=== PATIENT | male | born 1960 | race Caucasian/White ===

== ENCOUNTER 2018-11-17 10:57 | Inpatient (IN) | payer BC ==
[~2018-11-17] VITALS: Ht 185.4 cm; Wt 129.3 kg
--- NOTE | ~2018-11-17 | EKG ---
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 : 1960 Requested By: SHAMAR ALEGRIA Order Number: [id number] Reading MD: Ayan Langford MD Measurements Intervals [place] Rate: 58 P: 15 [place]: 183 QRS: -40 QRSD: 99 T: -24 QT: 412 QTc: 405 Interpretive Statements Sinus rhythm Left anterior fascicular block Low voltage, precordial leads Abnormal R-wave progression, late transition Nonspecific T abnormalities, inferior leads Compared to ECG 05/13/2018 15:44:45 Left anterior fascicular block now present Low QRS voltage now present Left-axis deviation no longer present T-wave abnormality still present Electronically Signed On 11-21-2018 9:40:43 PST by Ayan Langford MD CM:EKGRPT:ELECTROCARDIOGRAM REPORT [id number] SHAMAR MADRIGAL DRAFT REPORT SHAMAR ALEGRIA MD
--- NOTE | ~2018-11-17 | EKG ---
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 : 1960 Requested By: SHAMAR ALEGRIA Order Number: [id number] Reading MD: Ayan Langford MD Measurements Intervals [place] Rate: 65 P: 42 [place]: 207 QRS: -48 QRSD: 102 T: -21 QT: 389 QTc: 405 Interpretive Statements Sinus rhythm Borderline prolonged [place] interval Left anterior fascicular block Abnormal R-wave progression, late transition Borderline T abnormalities, inferior leads Compared to ECG 05/13/2018 15:44:45 Left anterior fascicular block now present Left-axis deviation no longer present T-wave abnormality still present Electronically Signed On 11-21-2018 9:41:05 PST by Ayan Langford MD CM:EKGRPT:ELECTROCARDIOGRAM REPORT [id number] SHAMAR MADRIGAL DRAFT REPORT SHAMAR ALEGRIA MD
--- NOTE | ~2018-11-17 | EKG ---
[place], [place] ELECTROCARDIOGRAM REPORT NAME: JO-ANN TUCKER UNIT #: [id number] ROOM: 404 DOCTOR: ROHAN DRAFT REPORT BIRTHDATE: [address] 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
--- NOTE | ~2018-11-17 | EKG ---
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: : 1960 Requested By: SHAMAR ALEGRIA Order Number: [id number] Reading MD: Measurements Intervals [place] Rate: 58 P: 166 [place]: 183 QRS: 217 QRSD: 99 T: 202 QT: 411 QTc: 404 Interpretive Statements Right and left arm electrode reversal, interpretation assumes no reversal Sinus or ectopic atrial rhythm Probable lateral infarct, age indeterminate Abnormal T, consider ischemia, inferior leads Baseline wander in lead(s) I,II,aVR Compared to ECG 05/13/2018 15:44:45 Ectopic atrial rhythm now present Myocardial infarct finding now present Possible ischemia now present Sinus rhythm no longer present Left-axis deviation no longer present T-wave abnormality still present CM:EKGRPT:ELECTROCARDIOGRAM REPORT [id number] SHAMAR MADRIGAL DRAFT REPORT SHAMAR ALEGRIA MD
[~2018-11-17 10:57] MED LIST: ASPIRIN81 M1 PO; ATORVASTATIN CA40 M1 PO; LOPRESSOR25 MG PO; LOSARTAN POTASS50 M1 PO; ZANTAC150 MG PO; ZOFRAN4 MG PO
[2018-11-17 11:00] VITALS: BP 171/96
[2018-11-17 11:18] LABS: BASO # 0.1 10*3/uL (0.0-0.1); BASO % 0.6 % (0.0-1.0); EOS # 0.2 10*3/uL (0.0-0.4); EOS % 2.4 % (1.0-4.0); HEMATOCRIT 42.8 % (42.0-52.0); HEMOGLOBIN 14.5 g/dl (14.0-18.0); LYMPH # 1.6 10*3/uL (1.3-4.4); LYMPH % 20.2 % (27.0-41.0); MEAN CELL VOLUME 89.4 fl (80.0-94.0); MEAN CORPUSCULAR HGB 30.3 pg (27.0-31.0); MEAN CORPUSCULAR HGB CONC 33.9 g/dl (33.0-37.0); MEAN PLATELET VOLUME 9.8 fl (9.6-12.3); MONO # 0.5 10*3/uL (0.1-1.0); MONO % 6.5 % (3.0-9.0); NEUT # 5.5 10*3/uL (2.3-7.9); NEUT % 69.4 % (47.0-73.0); PLATELET COUNT AUTOMATED 264 10*3/uL (130-400); RED BLOOD COUNT 4.79 10*6/uL (4.50-5.90); RED CELL DISTRI WIDTH 13.7 % (0-14.5); WHITE BLOOD COUNT 7.9 10*3/uL (4.8-10.8)
[2018-11-17 11:26] LABS: ACT PARTIAL THROMBO TIME 21.8 SECONDS (20.8-31.5); INTERNATIONAL NORM RATIO 0.9 (2.0-3.5)
[2018-11-17 11:39] LABS: ALBUMIN 4.2 gm/dl (3.1-4.5); ALKALINE PHOSPHATASE 69 U/L (45-117); BUN 14 mg/dl (7-24); CHLORIDE 107 mmol/L (98-107); CREATININE 1.09 mg/dL (0.70-1.30); POTASSIUM 4.5 mmol/L (3.5-5.1); SGOT/AST 18 IU/L (3-35); SGPT/ALT 46 U/L (12-78); SODIUM 142 mmol/L (136-145); TOTAL PROTEIN 7.5 gm/dL (6.4-8.2)
[2018-11-17 11:40] LABS: TROPONIN I < 0.015 ng/ml (<0.045)
[2018-11-17 12:45] VITALS: BP 148/62
[2018-11-17 13:15] VITALS: BP 155/85
[2018-11-17 13:26] VITALS: BP 155/85
[2018-11-17 15:56] VITALS: BP 127/78
--- NOTE | 2018-11-17 16:15 | NUR ---
DR RONQUILLO NOTIFIED OF CONSULT.
[2018-11-17] MEDS ORDERED: BRILINTA90 M1 PO (18:40)
--- NOTE | 2018-11-17 19:00 | NUR ---
DR BENAVIDES NOTIFIED THAT PT WILL TAKE PLAVIX TONIGHT AND THEN HAVE FAMILY BRING [place] IN AM TO HAVE IT SWITCHED BACK.
[2018-11-17 20:00] VITALS: BP 148/85
--- NOTE | 2018-11-17 20:51 | NUR ---
MEDICATED WITH PO TYLENOL ORDERED PER PT REQUEST FOR C/O HEADACHE.
[2018-11-18] VITALS: BP 153/86
--- NOTE | 2018-11-18 | NUR ---
SLEEPING, SNORING LOUDLY. AWAKENS EASILY. RESPIRATIONS EASY. LUNGS DIMINISHED, CLEAR. PULSE OX 98% RA. DENIES CHEST PAIN. AWARE OF NPO STATUS FOR POSSIBLE TESTING IN AM. CALL LIGHT WITHIN REACH. NO VOICED COMPLAINTS
--- NOTE | 2018-11-18 00:21 | NUR ---
24 HR chart check completed.
--- NOTE | 2018-11-18 06:00 | NUR ---
SLEPT THROUGHOUT NIGHT WITH NO DISTRESS NOTED. RESPIRATIONS EASY. NO C/O CHEST PAIN. CALL LIGHT WITHIN REACH. NO VOICED COMPLAINTS THIS SHIFT
[2018-11-18 06:01] LABS: BASO # 0.1 10*3/uL (0.0-0.1); BASO % 0.6 % (0.0-1.0); EOS # 0.2 10*3/uL (0.0-0.4); EOS % 2.4 % (1.0-4.0); HEMATOCRIT 41.1 % (42.0-52.0); HEMOGLOBIN 14.1 g/dl (14.0-18.0); LYMPH # 2.1 10*3/uL (1.3-4.4); LYMPH % 24.9 % (27.0-41.0); MEAN CELL VOLUME 89.7 fl (80.0-94.0); MEAN CORPUSCULAR HGB 30.8 pg (27.0-31.0); MEAN CORPUSCULAR HGB CONC 34.3 g/dl (33.0-37.0); MEAN PLATELET VOLUME 10.1 fl (9.6-12.3); MONO # 0.6 10*3/uL (0.1-1.0); MONO % 7.5 % (3.0-9.0); NEUT # 5.4 10*3/uL (2.3-7.9); NEUT % 63.9 % (47.0-73.0); PLATELET COUNT AUTOMATED 232 10*3/uL (130-400); RED BLOOD COUNT 4.58 10*6/uL (4.50-5.90); RED CELL DISTRI WIDTH 13.9 % (0-14.5); WHITE BLOOD COUNT 8.5 10*3/uL (4.8-10.8)
[2018-11-18 06:08] LABS: ALBUMIN 3.6 gm/dl (3.1-4.5); BUN 13 mg/dl (7-24); CHLORIDE 107 mmol/L (98-107); CHOLESTEROL 132 mg/dL (<200); CREATININE 1.06 mg/dL (0.70-1.30); HDL CHOLESTEROL 35 mg/dl (40-60); LDL CHOLESTEROL 68 mg/dL (9-159); PHOSPHOROUS 3.6 mg/dL (2.5-4.9); POTASSIUM 3.9 mmol/L (3.5-5.1); SGOT/AST 15 IU/L (3-35); SGPT/ALT 41 U/L (12-78); SODIUM 140 mmol/L (136-145); TOTAL PROTEIN 6.8 gm/dL (6.4-8.2); TRIGLYCERIDES 145 mg/dl (<150); VLDL CHOLESTEROL 29 mg/dL (6-40)
[2018-11-18 06:13] LABS: ALKALINE PHOSPHATASE 62 U/L (45-117); FREE T4 0.84 ng/dl (0.76-1.46)
[2018-11-18 07:40] VITALS: BP 152/88
--- NOTE | 2018-11-18 08:01 | NUR ---
[place] IS AWAKE, SITTING UP IN BED, PLEASANT, COOPERATIVE. DENIES ANY PAIN AT THIS TIME. WILL CONTINUE TO MONITOR. [facility].
[2018-11-18 08:38] LABS: VITAMIN D, 25-HYDROXY 38.1 ng/mL (30-100)
--- NOTE | 2018-11-18 09:00 | NUR ---
Pmo Manager in to talk to patient. Patient states lives at home with . There are few steps in the home. Physician: ahmet [facility]: [facility] Patient's level of ADLs: INDEPENDENT Patient has working utilities: all working DME: none Follow-up physician's appointment after d/c: will be made by hospitalist nurse director upon discharge Does patient want to access PORTAL?: no Discharge plan discussed with patient, patient lives at home with , is independent in adls and ambulation, patient states he will be going home when able and denies any home needs. OLGA SPENCER
--- NOTE | 2018-11-18 10:00 | NUR ---
DR BRAUN CALLED AND NOTIFIED OF PT REQUEST TO FOLLOW UP IN [place] AND NOT HAVE STRESS TEST HERE. DR STATES HE WILL TALK WITH DR HARRIS.
--- NOTE | 2018-11-18 10:22 | NUR ---
DR CASTELLANOS HERE ON FLOOR FOR CARDIOLOGY. UPDATED HIM ON PT REQUEST TO [place] UP WITH CARDIO IN [place] AND NOT HAVING STRESS TEST HERE.
--- NOTE | 2018-11-18 11:10 | NUR ---
Discharge instructions reviewed with patient/family. Patient receptive and verbalizes understanding. Follow-up care arranged. Written instructions given to patient/family. MADAY LEUNG
--- NOTE | 2018-11-18 11:10 | NUR ---
IV SITE DC'D. CATH INTACT. SITE ASYMPTOMATIC. PT TOLERATED WELL. DISCHARGED TO HOME WITH SPOUSE. AMBULATORY WTIH NO VOICED C/O PAIN, SOB, OR DISCOMFORT.
== END 2018-11-18 11:10 | disposition home or self-care (01) | DRG 392 ==
LOC: ED 10:57 → EDHOLD 11:43 → 4E 11:43
PROVIDERS: Emergency Medicine; Internal Medicine Nephrology; ADMIT Internal Medicine
DX: K21.9 Gastro-esophageal reflux disease without esophagitis (principal); R00.1 Bradycardia, unspecified; I10 Essential (primary) hypertension; R73.9 Hyperglycemia, unspecified; R07.89 Other chest pain; D72.810 Lymphocytopenia; E66.9 Obesity, unspecified; K76.0 Fatty (change of) liver, not elsewhere classified; K59.00 Constipation, unspecified; G47.30 Sleep apnea, unspecified; E78.5 Hyperlipidemia, unspecified; I25.10 Atherosclerotic heart disease of native coronary artery without angina pectoris; I25.2 Old myocardial infarction; Z95.5 Presence of coronary angioplasty implant and graft; Z83.3 Family history of diabetes mellitus; Z80.9 Family history of malignant neoplasm, unspecified; Z79.82 Long term (current) use of aspirin; Z79.899 Other long term (current) drug therapy

== ENCOUNTER → 2020-08-30 | Outpatient (CLI) | payer BC ==
[~2020-08-30] MED LIST changes: +BRILINTA90 M1 PO
== END | disposition home or self-care (01) ==
LOC: COVID19 09:48
PROVIDERS: ATTEND Internal Medicine
DX: U07.1 COVID-19 (principal)

== ENCOUNTER 2022-04-11 08:32 | Observation (INO) | payer BC ==
[~2022-04-11] VITALS: Ht 185.4 cm; Wt 144.7 kg
[2022-04-11 08:46] VITALS: BP 129/77
[2022-04-11 09:17] LABS: BASO % 0.5 % (0.0-1.0); EOS # 0.2 10*3/uL (0.0-0.4); EOS % 3.2 % (1.0-4.0); HEMATOCRIT 38.4 % (42.0-52.0); LYMPH % 13.6 % (27.0-41.0); MEAN CELL VOLUME 87.3 fl (80.0-94.0); MEAN CORPUSCULAR HGB 30.2 pg (27.0-31.0); MEAN CORPUSCULAR HGB CONC 34.6 g/dl (33.0-37.0); MEAN PLATELET VOLUME 9.8 fl (9.6-12.3); MONO # 0.6 10*3/uL (0.1-1.0); MONO % 8.5 % (3.0-9.0); NEUT # 5.5 10*3/uL (2.3-7.9); NEUT % 73.5 % (47.0-73.0); PLATELET COUNT AUTOMATED 221 10*3/uL (130-400); RED CELL DISTRI WIDTH 13.2 % (0-14.5); WHITE BLOOD COUNT 7.5 10*3/uL (4.8-10.8)
[2022-04-11 09:27] LABS: ACT PARTIAL THROMBO TIME 25.3 SECONDS (20.0-32.1)
[2022-04-11 09:34] LABS: BUN 15 mg/dl (7-24); CHLORIDE 107 mmol/L (98-107); CREATININE 1.12 mg/dL (0.70-1.30); LIPASE 91 U/L (73-393); POTASSIUM 3.6 mmol/L (3.5-5.1); SGOT/AST 13 IU/L (3-35); SGPT/ALT 32 U/L (12-78); SODIUM 139 mmol/L (136-145)
[2022-04-11 09:36] LABS: ALKALINE PHOSPHATASE 50 U/L (45-117); TOTAL PROTEIN 6.5 gm/dL (6.4-8.2)
[2022-04-11 11:00] VITALS: BP 128/74
[2022-04-11] MEDS ORDERED: HYDR25T PO (12:06)
[2022-04-11 13:10] VITALS: BP 128/78
[2022-04-11 13:15] VITALS: BP 120/72; BP 120/73
[2022-04-11] MEDS ORDERED: METOPROLOL25 MG PO (13:46)
[2022-04-11 15:59] VITALS: BP 112/65
[2022-04-11 20:00] VITALS: BP 107/64
[2022-04-12] VITALS: BP 107/50
[2022-04-12 06:04] LABS: BUN 14 mg/dl (7-24); CHLORIDE 108 mmol/L (98-107); CHOLESTEROL 95 mg/dL (<200); CREATININE 1.17 mg/dL (0.70-1.30); FREE T4 0.77 ng/dl (0.76-1.46); LDL CHOLESTEROL 28 mg/dL (9-159); POTASSIUM 3.9 mmol/L (3.5-5.1); SODIUM 142 mmol/L (136-145); TRIGLYCERIDES 188 mg/dl (<150)
[2022-04-12 06:53] LABS: BASO % 0.5 % (0.0-1.0); EOS # 0.3 10*3/uL (0.0-0.4); HEMATOCRIT 38.2 % (42.0-52.0); LYMPH # 1.3 10*3/uL (1.3-4.4); LYMPH % 21.3 % (27.0-41.0); MEAN CORPUSCULAR HGB 30.8 pg (27.0-31.0); MEAN PLATELET VOLUME 10.4 fl (9.6-12.3); MONO # 0.6 10*3/uL (0.1-1.0); MONO % 9.5 % (3.0-9.0); NEUT % 64.1 % (47.0-73.0); PLATELET COUNT AUTOMATED 197 10*3/uL (130-400); RED BLOOD COUNT 4.22 10*6/uL (4.50-5.90); RED CELL DISTRI WIDTH 13.4 % (0-14.5); WHITE BLOOD COUNT 6.2 10*3/uL (4.8-10.8)
[2022-04-12 07:03] LABS: MEAN CELL VOLUME 90.5 fl (80.0-94.0)
[2022-04-12 08:00] VITALS: BP 98/50
[2022-04-12 08:00] LABS: VITAMIN D, 25-HYDROXY 48.7 ng/mL (30-100)
[2022-04-12 12:00] VITALS: BP 101/46; BP 140/90
[2022-04-12] MEDS ORDERED: LOSARTAN POTASS50 M1 PO (12:49)
[2022-04-12] MEDS ORDERED: LOPRESSOR25 MG PO (12:49)
[2022-04-12] MEDS ORDERED: MECLIZINE HCL25 M2 PO (12:49)
== END 2022-04-12 17:21 | disposition home or self-care (01) ==
LOC: ED 08:32 → 5E 10:26 → EDHOLD 10:26 → 5E 10:26 → EDHOLD 10:27 → 5E 12:42
PROVIDERS: Emergency Medicine; Registered Nurse; ADMIT Internal Medicine; ATTEND Internal Medicine
DX: R42 Dizziness and giddiness (principal); I25.110 Atherosclerotic heart disease of native coronary artery with unstable angina pectoris; K59.00 Constipation, unspecified; G47.30 Sleep apnea, unspecified; E66.9 Obesity, unspecified; I10 Essential (primary) hypertension; E78.5 Hyperlipidemia, unspecified; I25.2 Old myocardial infarction; H91.90 Unspecified hearing loss, unspecified ear; Z79.01 Long term (current) use of anticoagulants; Z79.82 Long term (current) use of aspirin; Z79.899 Other long term (current) drug therapy

== ENCOUNTER → 2022-06-19 | Outpatient (CLI) | payer BC ==
[~2022-06-19] MED LIST changes: +HYDR25T PO; +MECLIZINE HCL25 M2 PO; +METOPROLOL25 MG PO
== END | disposition home or self-care (01) ==
LOC: CT 13:00
PROVIDERS: ATTEND Family Medicine
DX: R80.9 Proteinuria, unspecified (principal); J92.9 Pleural plaque without asbestos; I70.8 Atherosclerosis of other arteries; M47.819 Spondylosis without myelopathy or radiculopathy, site unspecified; M16.0 Bilateral primary osteoarthritis of hip

== ENCOUNTER 2022-09-30 17:56 | Emergency (ER) | payer BC ==
[2022-09-30 18:18] LABS: BASO # 0.1 10*3/uL (0.0-0.1); BASO % 0.6 % (0.0-1.0); EOS # 0.3 10*3/uL (0.0-0.4); EOS % 3.8 % (1.0-4.0); HEMATOCRIT 39.7 % (42.0-52.0); LYMPH # 1.9 10*3/uL (1.3-4.4); LYMPH % 23.2 % (27.0-41.0); MEAN CORPUSCULAR HGB 30.6 pg (27.0-31.0); MEAN PLATELET VOLUME 9.3 fl (9.6-12.3); MONO # 0.8 10*3/uL (0.1-1.0); MONO % 9.8 % (3.0-9.0); NEUT # 5.1 10*3/uL (2.3-7.9); NEUT % 61.5 % (47.0-73.0); PLATELET COUNT AUTOMATED 240 10*3/uL (130-400); RED BLOOD COUNT 4.41 10*6/uL (4.50-5.90); RED CELL DISTRI WIDTH 13.7 % (0-14.5); WHITE BLOOD COUNT 8.4 10*3/uL (4.8-10.8)
[2022-09-30 18:31] LABS: ACT PARTIAL THROMBO TIME 24.3 SECONDS (20.0-32.1)
[2022-09-30 18:33] LABS: ALKALINE PHOSPHATASE 53 U/L (46-116); BUN 16 mg/dl (9-23); CHLORIDE 102 mmol/L (98-107); POTASSIUM 3.7 mmol/L (3.4-5.1); SGPT/ALT 33 U/L (10-49); TOTAL PROTEIN 6.6 gm/dL (6.0-8.0)
== END 2022-09-30 22:00 | disposition home or self-care (01) ==
LOC: ED 17:56
PROVIDERS: Emergency Medicine
DX: R07.89 Other chest pain (principal); Z98.890 Other specified postprocedural states